=== PATIENT | female | born 1945 | race African-American/Black ===

== ENCOUNTER 2024-08-28 12:29 | Outpatient (AMB) | payer OTHER, SELFPAY ==
[2024-08-28 12:32] VITALS: BP 118/74; PULSE 68; TEMP 36.6; O2SAT 100
--- NOTE | 2024-08-28 12:32 | AM.OFFWIN_ITS ---
Intake Vital Signs 08/28/24 12:32 Height 5 ft 1 in BMI Reason not done Patient refused/unable BP 118/74 Blood Pressure Location Rt brachial Position Sitting Pulse 68 Pulse Source Pulse Oximeter Temp 97.9 F Temp Source Temporal Artery Scan Pulse Oximetry (%) 100 Oxygen Delivery Method Room Air Intake Visit Reasons: [employer]-lt shoulder pain/swollen Intake Note: pt is here for new patient, left shoulder pain with swelling due to fall Patient Tobacco Use Status: Never used Tobacco Allergies No Known Allergies Allergy (Verified 08/28/24 12:33) Do you need a note to return to daycare/school/sports/work: No HPI HPI Comments History of Present Illness Details Patient is an 79-year-old female here with a friend complaining of bilateral shoulder pain. She tells me that sometimes it is her left shoulder and sometimes it is her right shoulder. She tells me today it is her right shoulder however her friend is telling me that it is her left shoulder. Patient is unable to move her left shoulder, she says due to pain but denies any weakness numbness or tingling in her left shoulder or arm or hand. She is able to move her right shoulder but has limited range of motion. She denies any numbness tingling or weakness in her right shoulder arm or hand. She tells me sometimes she takes Tylenol but other than that, she does not take anything to improve her pain. She tells me she has not fallen specifically recently but did have a big fall about 6 months ago down the stairs. PFSH Social History Patient Tobacco Use Status: Never used Tobacco Review of Systems Const All systems reviewed & are unremarkable except as noted in HPI and below Physical Exam Vital Signs: Last Vital Signs Temp 97.9 F 08/28/24 12:32 Pulse 68 08/28/24 12:32 BP 118/74 08/28/24 12:32 Pulse Ox 100 08/28/24 12:32 Oxygen Delivery Method Room Air 08/28/24 12:32 Const General: cooperative, healthy appearing, comfortable, no acute distress and well developed Orientation/consciousness: patient oriented x3 Limitations: wheelchair HEENT Head: Yes normal to inspection Ears: hearing grossly normal bilaterally General nose exam: Normal external nose present Face and sinus: Yes normal facial exam Eyes General: appearance normal, both eyes and all related structures Neck Neck: Yes normal visual inspection and Yes full ROM Resp Effort & Inspection: normal respiratory effort and able to speak in complete sentences Skin General skin exam: no rashes or lesions noted Neuro General: patient oriented x3 Extrem General: Yes normal to inspection Right upper extremity: shoulder/upper arm Details: normal to inspection, axillary nerve sensory function normal and abnormal ROM Details: pain with active ROM Details: in ABduction and in internal rotation and pain with passive ROM Details: with ABduction and with internal rotation; no tenderness, no swelling, no abrasions, no lacerations, no ecchymosis, no deformity and no unusual warmth Left upper extremity: shoulder/upper arm Details: inspection abnormal, axillary nerve sensory function normal and abnormal ROM Details: held in an abnormal fashion (on lap) Details: in extension, pain with active ROM and pain with passive ROM; no tenderness, no swelling, no lacerations, no ecchymosis, no deformity and no unsual warmth Assessment & Plan Assessment & Plan (1) Right shoulder pain: Code(s): M25.511 - Pain in right shoulder Qualifiers: Chronicity: acute Qualified Code(s): M25.511 - Pain in right shoulder Plan: We will get shoulder x-rays, recommended using Voltaren gel as it is likely arthritis. Can use Aleve and Tylenol as well as ice. If no improvement in her pain, she should follow up with her PCP. (2) Left shoulder pain: Code(s): M25.512 - Pain in left shoulder Qualifiers: Chronicity: acute Qualified Code(s): M25.512 - Pain in left shoulder Plan: See above Plan See above Orders: Orders XR shoulder LT min 2V Today M25.512 - Pain in left shoulder XR shoulder RT min 2V Today M25.511 - Pain in right shoulder Coding Level of Care Code New Pt Level 4 (97266) Diagnoses Acute pain of right shoulder M25.511 Chronicity: acute Acute pain of left shoulder M25.512 Chronicity: acute
== END 2024-08-28 12:55 | disposition home or self-care (01) ==
PROVIDERS: PCP Hospitalist; Visit Provider Physician Assistant
DX: M25.511 Pain in right shoulder (principal); M25.512 Pain in left shoulder

== ENCOUNTER 2024-08-28 12:29 | Outpatient (REF) | payer OTHER, SELFPAY ==
--- NOTE | ~2024-08-28 | XR_ITS ---
EXAMINATION: XR SHOULDER, LEFT CLINICAL INFORMATION: Left shoulder pain COMPARISON: None available. TECHNIQUE: AP external rotation, Grashey, scapular Y, and axillary views of the left shoulder. FINDINGS: There is mild acromioclavicular osteoarthritis. Glenohumeral joint is narrowed with osteophyte formation. No fracture. Alignment is anatomic. Soft tissues are normal with no abnormal calcifications. 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 Electronically signed by: Nina Best MD 08/28/2024 04:19 PM EDT
--- NOTE | ~2024-08-28 | XR_ITS ---
EXAMINATION: XR SHOULDER, RIGHT CLINICAL INFORMATION: Right shoulder pain COMPARISON: None available. TECHNIQUE: AP external rotation, Grashey, scapular Y, and axillary views of the right shoulder. FINDINGS: There is mild acromioclavicular osteoarthritis. Glenohumeral joint is narrowed with osteophyte formation. No fracture. Alignment is anatomic. Soft tissues are normal with no abnormal calcifications. XR/XR shoulder RT min 2V IMPRESSION: Mild degenerative disease of the right shoulder. Electronically signed by: Nina Best MD 08/28/2024 04:20 PM EDT
== END 2024-08-28 12:30 | disposition home or self-care (01) ==
LOC: HO.HMGCX 12:29
PROVIDERS: PCP Hospitalist; Visit Provider Physician Assistant
DX: M25.512 Pain in left shoulder (principal); M25.511 Pain in right shoulder
CPT/HCPCS: 73030; 99202